=== PATIENT | female | born 1995 | race African-American/Black ===

== ENCOUNTER 2017-08-29 18:10 | Observation (INO) | payer MEDICAID ==
[2017-08-29] MEDS ORDERED: PREN-145 OR (19:25)
[2017-08-29 19:29] LABS: Urine Bilirubin Negative (Negative); Urine Blood TRACE /uL (Negative); Urine Color Yellow (Yellow); Urine Glucose Normal (Normal); Urine Ketone Negative (Negative); Urine Nitrite POSITIVE (Negative); Urine RBC 7 /hpf (0 - 4); Urine Squamous Epithelial Cell FEW /hpf (<5); Urine Urobilinogen Normal (Negative); Urine WBC Clumps PRESENT /hpf (None Seen)
== END 2017-08-29 20:17 | disposition home or self-care (01) | DRG 566 ==
LOC: LDRP 18:10
PROVIDERS: ADMIT Obstetrics & Gynecology; ATTEND Obstetrics & Gynecology
DX: O26.892 Other specified pregnancy related conditions, second trimester (principal); R10.9 Unspecified abdominal pain; Z3A.24 24 weeks gestation of pregnancy
CPT/HCPCS: 59025; 80307; 81001; 81002; G0378